=== PATIENT | female | born 1940 | race Caucasian/White ===

== ENCOUNTER 2017-12-13 14:17 | Inpatient (IN) | payer OTHER ==
--- NOTE | 2017-12-13 14:38 | CPEKG ---
Heart Rate: 74 RR Interval: 811 P-R Interval: 212 QRSD Interval: 78 QT Interval: 392 QTC Interval: 435 P Cascade: 81 QRS Cascade: -2 T Wave Cascade: 55 EKG Severity - ABNORMAL ECG - EKG Impression: SINUS RHYTHM EKG Impression: CONSIDER ANTEROSEPTAL INFARCT EKG Impression: The unchanged from previous Electronically Signed By: Martínez Kapadia 13-Dec-2017 14:50:44
--- NOTE | 2017-12-13 14:49 | EDPHY ---
H & P Stated Complaint: Syncope today Time Seen by Provider: 12/13/17 14:33 HPI/ROS: CHIEF COMPLAINT: Syncope HISTORY OF PRESENT ILLNESS: The patient is a 77-year-old female whose brings her to the emergency department for syncopal event this morning. The patient has a history of gradually progressing dementia and has been followed by neurologist in [place]. [place]. They have done an MRI that revealed microvascular and and ischemic disease. Patient has never clinically experienced TIA or CVA symptoms. Today they had an appointment with the neurologist and got up early the patient did her hair and makeup and then went stairs. She leaned against the kitchen counter and then became lightheaded and fainted. Her caught her. She did not suffer any trauma. Her states that she is fallen 4-5 times in the last 2 months and he is now wondering if they were actually syncopal events. The patient denies having any chest pain or shortness of breath associated with the event this morning or with the previous events. She denies palpitations. No recent fevers or illness. She is currently asymptomatic. She did not have any focal weakness or deficits or speech abnormalities. states that she was unconscious for about a minute any later to the ground. She woke up and said "I am fine I was just trying to sit down ". REVIEW OF SYSTEMS: Constitutional: denies: chills, fever, recent illness, recent injury EENTM: denies: blurred vision, double vision, nose congestion Respiratory: denies: cough, shortness of breath Cardiac: See HPI Gastrointestinal/Abdominal: denies: abdominal pain, diarrhea, nausea, vomiting, blood streaked stools Genitourinary: denies: dysuria, frequency, hematuria, pain Musculoskeletal: denies: joint pain, muscle pain Skin: denies: lesions, rash, jaundice, bruising Neurological: denies: headache, numbness, paresthesia, tingling, dizziness, weakness Hematologic/Lymphatic: denies: blood clots, easy bleeding, easy bruising Immunologic/allergic: denies: HIV/AIDS, transplant EXAM: GENERAL: Well-appearing, well-nourished and in no acute distress. HEAD: Atraumatic, normocephalic. EYES: Pupils equal round and reactive to light, extraocular movements intact, sclera anicteric, conjunctiva are normal. ENT: TMs normal, nares patent, oropharynx clear without exudates. Moist mucous membranes. NECK: Normal range of motion, supple without lymphadenopathy or JVD. LUNGS: Breath sounds clear to auscultation bilaterally and equal. No wheezes rales or rhonchi. HEART: Regular rate and rhythm without murmurs, rubs or gallops. ABDOMEN: Soft, nontender, normoactive bowel sounds. No guarding, no rebound. No masses appreciated. BACK: No CVA tenderness, no spinal tenderness, step-offs or deformities EXTREMITIES: Normal range of motion, no pitting or edema. No clubbing or cyanosis. NEUROLOGICAL: Cranial nerves II through XII grossly intact. Normal speech, normal gait. 5/5 strength, normal movement in all extremities, normal sensation PSYCH: Normal mood, normal affect. SKIN: Several old arias to forehead from curling iron Source: Patient Exam Limitations: No limitations - Personal History Current Tetanus/Diphtheria Vaccine: Unsure Current Tetanus Diphtheria and Acellular Pertussis (TDAP): Unsure - Medical/Surgical History Hx Asthma: No Hx Chronic Respiratory Disease: No Hx Diabetes: No Hx Cardiac Disease: No Hx Renal Disease: No Hx Cirrhosis: No Hx Alcoholism: No Hx HIV/AIDS: No Hx Splenectomy or Spleen Trauma: No Other PMH: Dementia, hypertension. Diabetes. Cholesterol high - Family History Significant Family History: No pertinent family hx - Social History Smoking Status: Former smoker Alcohol Use: Sober Drug Use: None Constitutional: Initial Vital Signs Temperature (C) 36.2 C 12/13/17 14:18 Heart Rate 76 12/13/17 14:18 Respiratory Rate 18 12/13/17 14:18 Blood Pressure 138/43 H 12/13/17 14:18 O2 Sat (%) 94 12/13/17 14:18 O2 Delivery Mode Room Air Allergies/Adverse Reactions: bupropion HCl [From Wellbutrin] Allergy (Verified 11/17/15 21:31) INSOMNIA Home Medications: Medication Instructions Recorded Calcium Carbonate [Oyster Shell 500 mg PO BID 12/13/17 Calcium 500 mg (*)] Cholecalciferol Vit D3 [Vitamin D3 1,000 units PO BID 12/13/17 (*)] Donepezil HCl [Aricept] 10 mg PO DAILY 12/13/17 HYDROcodone BIT/HOMATROP ME-BR 0.5 - 1 tsp PO Q4-6PRN PRN 12/13/17 [Hydromet Syrup] Herbals/Supplements -Info Only 1 ea PO DAILY 12/13/17 Lisinopril [Zestril 20 mg (*)] 20 mg PO DAILY 12/13/17 Memantine HCl [Namenda 10 mg] 10 mg PO BID 12/13/17 Multivitamins [Multivitamin (*)] 1 each PO BID 12/13/17 Rosuvastatin Calcium [Crestor 20mg 20 mg PO DAILY 12/13/17 (*)] amLODIPine BESYLATE [Norvasc 5 mg 5 mg PO DAILY 12/13/17 (*)] levOFLOXACIN [levAQUIN (*)] 500 mg PO DAILY@17 12/13/17 metFORMIN HCL [Glucophage 500 mg 500 mg PO BIDMEAL 12/13/17 (*)] Medical Decision Making - Diagnostics EKG Interpretation: An EKG obtained and was read and documented in trace view. Please see trace view for full reading and report. Sinus rhythm, no acute ischemic changes Imaging Results: Imaging Impressions Chest X-Ray 12/13/17 14:46 Impression: Clear lungs. No acute process. Imaging: Discussed imaging studies w/ call center recruiter Radiologist ED Course/Re-evaluation: The patient's initial testing is normal. I will admit for further observation and workup. 3:50 p.m. I discussed the case with Dr. Alberto Funes who will admit for further testing. Differential Diagnosis: Partial list of the Differential diagnosis considered include but were not limited to; syncope, arrhythmia, anemia, dehydration and although unlikely based on the history and physical exam, I also considered CVA, TIA, infection, trauma. - Data Points Laboratory Results: Laboratory Results 12/13/17 14:52 12/13/17 14:52 12/13/17 12/13/17 12/13/17 14:52 14:52 14:52 WBC 5.84 10^3/uL 10^3/uL (3.80-9.50) RBC 3.73 10^6/uL L 10^6/uL (4.18-5.33) Hgb 12.2 g/dL L g/dL (12.6-16.3) Hct 35.5 % L % (38.0-47.0) MCV 95.2 fL fL (81.5-99.8) MCH 32.7 pg pg (27.9-34.1) MCHC 34.4 g/dL g/dL (32.4-36.7) RDW 12.7 % % (11.5-15.2) Plt Count 286 10^3/uL 10^3/uL (150-400) MPV 10.9 fL fL (8.7-11.7) Neut % (Auto) 63.0 % % (39.3-74.2) Lymph % (Auto) 23.8 % % (15.0-45.0) [place] % (Auto) 11.0 % % (4.5-13.0) Eos % (Auto) 1.5 % % (0.6-7.6) Baso % (Auto) 0.5 % % (0.3-1.7) Nucleat RBC Rel Count 0.0 % % (0.0-0.2) Absolute Neuts (auto) 3.68 10^3/uL 10^3/uL (1.70-6.50) Absolute Lymphs (auto) 1.39 10^3/uL 10^3/uL (1.00-3.00) Absolute Monos (auto) 0.64 10^3/uL 10^3/uL (0.30-0.80) Absolute Eos (auto) 0.09 10^3/uL 10^3/uL (0.03-0.40) Absolute Basos (auto) 0.03 10^3/uL 10^3/uL (0.02-0.10) Absolute Nucleated RBC 0.00 10^3/uL 10^3/uL (0-0.01) Immature Gran % 0.2 % % (0.0-1.1) Immature Gran # 0.01 10^3/uL 10^3/uL (0.00-0.10) PT 14.1 SEC SEC (12.0-15.0) INR 1.07 (0.83-1.16) APTT 28.6 SEC SEC (23.0-38.0) Sodium 142 mEq/L mEq/L (135-145) Potassium 4.4 mEq/L mEq/L (3.5-5.2) Chloride 104 mEq/L mEq/L (97-110) Carbon Dioxide 25 mEq/l mEq/l (22-31) Anion Gap 13 mEq/L mEq/L (8-16) BUN 28 mg/dL H mg/dL (7-23) Creatinine 1.2 mg/dL H mg/dL (0.6-1.0) Estimated GFR 43 Glucose 131 mg/dL H mg/dL (70-100) Calcium 9.8 mg/dL mg/dL (8.5-10.4) Troponin I < 0.012 ng/mL ng/mL (0.000-0.034) Departure - Departure Disposition: [facility] Inpatient Acute Clinical Impression: Syncope Qualifiers: Syncope type: unspecified Qualified Code(s): R55 - Syncope and collapse Condition: Fair
[2017-12-13 15:02] LABS: PLATELET COUNT 286 10^3/uL (150-400)
[2017-12-13 15:10] LABS: INR 1.07 (0.83-1.16); PROTIME(PATIENT) 14.1 SEC (12.0-15.0)
[2017-12-13] MEDS ORDERED: ACETAMINOPHEN 325 MG TAB PO PRN (17:19)
[2017-12-13] MEDS ORDERED: D5W 1/2 NS W/ 20 KCl/L 1,000 ML IV SCH (17:30)
--- NOTE | 2017-12-13 17:32 | GHP ---
[f rep st] HISTORY AND PHYSICAL DATE OF ADMISSION: 12/13/2017 CHIEF COMPLAINT: Syncope. HISTORY OF PRESENT ILLNESS: This is a 77-year-old female, with no significant past medical history, who presented to the emergency department today after she passed out this morning. The patient's hus band witnessed this. She was standing in the kitchen when she suddenly slumped over. Her wa s able to catch her and slowly bring her to the ground. Apparently she had lost consciousness for 30 seconds. There was no witnessed seizure activity. The patient denied any preceding chest pain or s hortness of breath. The patient has had multiple recent falls over the past few weeks, one of which she fell forward and broke a tooth. The other falls had not been witnessed. PAST MEDICAL HISTORY: 1. Multiple falls as detailed in the HPI. 2. Borderline diabetes mellitus. 3. Some memory loss. PAST SURGICAL HISTORY: Hysterectomy. HOME MEDICATIONS: Reviewed. Refer to [employer] for details. ALLERGIES: Wellbutrin. SOCIAL HISTORY: She lives with her in [place]. She drinks alcohol occasionally. She is a former smoker. She denies any illicit drug use. FAMILY HISTORY: Reviewed and noncontributory. REVIEW OF SYSTEMS: Comprehensive 10-point review of systems was done and is negative, except for as mentioned in the HPI. The patient has had a cough for the past 4 or 5 days. She was seen by her [facility] provider who started her on antibiotic and decongestant. She continues to cough but denies any fever or chills. PHYSICAL EXAM: VITAL SIGNS: Blood pressure 139/65, pulse of 67, respiratory rate 15. O2 sat 97% on room air. Temperature afebrile. GENERAL: No acute distress. HEAD: Normocephalic, atraumatic. E YES: PERRLA. Sclerae anicteric. MOUTH: Moist mucous membranes. NECK: Supple. No lymphadenopath y. CARDIOVASCULAR: S1, S2. No murmurs, rubs, clicks, gallops. No JVD. No lower extremity edema. PULMONARY: Lungs are clear. No wheezes, rales, or rhonchi. ABDOMEN: Soft, nontender, nondistende d. No guarding or rebound tenderness. Normoactive bowel sounds. EXTREMITIES: No clubbing or cyano sis. NEURO: Cranial nerves 2-12 grossly intact. No focal motor or sensory deficits. SKIN: Clear. No rashes. DIAGNOSTICS: Chest x-ray, which I visualized and personally interpreted, was negative for pneumonia. EKG which I visualized and personally interpreted, sinus rhythm, rate 74 beats per minute. There are Q waves in V1 and V2. No other acute ischemic changes. WBC is 5.8, hemoglobin 12.2, hematocrit 35.5, platelets 286. Coags unremarkable. Sodium 142, potassium 4.4, chloride 104, BUN 28, creatinine 1.2, glucose 131. ASSESSMENT AND PLAN: This is a 77-year-old female, presented to the ER status post: 1. Syncope, concerning for cardiogenic syncope given her history of recent falls and drop attacks. 2. Prerenal azotemia, possible dehydration. 3. Anterior Q waves on EKG without reported history of coronary artery disease. 4. Mild normocytic anemia. PLAN: 1. Place on observation. 2. Monitor on telemetry. 3. Iron studies. 4. IV hydration. 5. Echocardiogram to evaluate for wall motion abnormalities, given her Q waves on EKG. 6. Will ask my colleagues to consult Cardiology in the morning. 7. The patient requests to be full code status. /[id number]/MODL
[2017-12-13] MEDS: metFORMIN HCL 500 MG TAB PO SCH (18:29)
[2017-12-13] MEDS: MULTIVITAMINS 1 EACH TAB PO SCH (20:26)
[2017-12-13] MEDS: MEMANTINE HCL 5 MG TAB PO SCH (20:26)
[2017-12-13] MEDS ORDERED: NON-FORMULARY NEW DRUG (Memantine Hcl [Namenda 10 Mg] 10 MG) PO SCH (21:00)
[2017-12-14 03:50] LABS: PLATELET COUNT 286 10^3/uL (150-400)
[2017-12-14] MEDS: LISINOPRIL 20 MG TAB PO SCH (08:49)
[2017-12-14] MEDS: metFORMIN HCL 500 MG TAB PO SCH ×2 (08:49→18:19)
[2017-12-14] MEDS: ROSUVASTATIN CALCIUM 20 MG TAB PO SCH (08:50)
[2017-12-14] MEDS: MEMANTINE HCL 5 MG TAB PO SCH ×2 (08:51→20:39)
[2017-12-14] MEDS: DONEPEZIL HCL 5 MG TAB PO SCH (08:51)
[2017-12-14] MEDS: MULTIVITAMINS 1 EACH TAB PO SCH ×2 (08:51→20:39)
[2017-12-14] MEDS ORDERED: NON-FORMULARY NEW DRUG (Donepezil Hcl [Aricept] 10 MG) PO SCH (09:00)
--- NOTE | 2017-12-14 09:20 | ECHO ---
[email or web address] [address] [address] Main: [phone] Fax: Transthoracic Echocardiogram Name: DOTTIE MAHAJAN MR#: [id number] Study Date: 12/14/2017 Study Time: 07:47 AM Date of : 1940 Age: 77 year(s) Height: 175.3 cm (69 in.) Weight: 65.77 kg (145 lb.) BSA: 1.8 m2 Gender: Female Examination: Echo Indication: Anterior Q waves presents with syncope Image Quality: Contrast: Requested by: Alberto Funes BP: 113 mmHg/56 mmHg Heart Rate: Rhythm: Indication: Anterior Q waves presents with syncope Procedure Staff Reverse Unit Operator: Mireille Yoon [facility] Reading Physician: Gabe Powers Requesting Provider: Conclusions: Normal global systolic LV function. The ejection fraction is estimated to be 60-65 %. No regional wall motion abnormality. Mild to moderate mitral regurgitation. The aortic valve is normal in appearance and function. The tricuspid valve is normal in appearance and function. There is no previous echocardiogram for comparison. Measurements: Chambers Valvular Assessment AV/MV Valvular Assessment TV/PV Normal Normal Normal Name Value Range Name Value Range Name Value Range Ao Emi (MM): 3.2 cm (2.2 cm-3.7 AV Vmax: 1.05 m/s (1 m/s-1.7 cm) m/s) IVSd (2D): 0.7 cm (0.6 cm-1.1 AV maxP mmHg ( - ) cm) MV E Vmax: 1.04 m/s ( - ) LVDd (2D): 4.1 cm (3.9 cm-5.3 MV A Vmax: 1.15 m/s ( - ) cm) MV E/A: 0.90 ( - ) LVDs (2D): 2.8 cm (2.1 cm-4 cm) LVPWd (2D): 0.7 cm ( - ) LVEF (MOD4): 66 % (>=55 %) EF Range: 60-65 % Continued Measurements: Chambers Valvular Assessment AV/MV Name Value Name Value LADs: 3.3 cm MV E/E' Septal: 16.20 LADs Lon.0 cm Patient: DOTTIE MAHAJAN Study Date: 12/14/2017 Page 1 of 2 07:47 AM LA Area: 17.9 cm2 MV E/E' Lateral: 19.80 Findings: Left Ventricle: Normal size left ventricle. No LV hypertrophy. Normal global systolic LV function. The ejection fraction is estimated to be 60-65 %. No regional wall motion abnormality. Right Ventricle: Normal size right ventricle. Left Atrium: The left atrium is normal in size. Right Atrium: The right atrium is normal in size. Mitral Valve: Mild mitral annular calcification. Mild to moderate mitral regurgitation. Aortic Valve: The aortic valve is normal in appearance and function. Tricuspid Valve: The tricuspid valve is normal in appearance and function. Pulmonic Valve: The pulmonic valve is normal in appearance and function. Aorta: The aorta is normal. Pericardium: No pericardial effusion. (No Signature Object) Patient: DOTTIE MAHAJAN Study Date: 12/14/2017 Page 2 of 2 07:47 AM [id number]
--- NOTE | 2017-12-14 10:14 | GHP ---
[f rep st] HISTORY AND PHYSICAL DATE OF ADMISSION: 12/13/2017 INDICATION: Syncope. HISTORY OF PRESENT ILLNESS: A 77-year-old female who was admitted yesterday after an episode of ligh theadedness and near syncope. She was witnessed by her , who I actually caught her. She retu rned back to normal within less than 30 seconds. She was brought to the [facility] emergency room for furth er evaluation. Past medical history significant for history of hypercholesterolemia for which she carranza s been on longstanding statins without problems. She has a history of hypertension, on chronic stabl e meds. She apparently has been having issues with forgetfulness and early dementia, has seen a neur ologist in [place]. Apparently an MRI showed possible multi-infarcts. In speaking to her , edmundo polk has been no history of coronary artery disease. She has had, over the last year, so some "falls. " Some are clearly slip and falls with catching her toe on a sidewalk, some could actually have been arrhythmia causes. She has no definite history of prior diagnosis of any arrhythmias. Her EKG show s normal sinus rhythm. Her troponins are normal. She denies any ACS symptomatology or CHF. An echo cardiogram today was essentially normal except for changes consistent with her age. She did have a U RI the last few days, was seen by her primary care physician, on antibiotics, but did not have any co ughing or fever or shaking chills prior to this. No history of seizures. She is resting comfortably in her bed at this time. PAST HISTORY: 1. Hyperlipidemia. 2. Hypertension. 3. Memory loss suspicious for early dementia versus multi-infarct dementia. Followed by Neurology. PAST SURGICAL HISTORY: Hysterectomy. MEDICATIONS: See reconciliation form. She is on Crestor and an JESSICA inhibitor for cardiac reasons. ALLERGIES: To Wellbutrin. SOCIAL HISTORY: She lives with her . She denies any alcohol abuse. She has never been a smo ker. REVIEW OF SYSTEMS: Ten-point is negative except for the above issues mentioned in her HPI. PHYSICAL EXAMINATION: VITAL SIGNS: Blood pressure is 130/60, heart rate in the 60s in sinus with oc casional PVCs or PACs. GENERAL: She is an elderly female who is alert and oriented x3, with no acut e distress at this time. HEENT: Showed moist oropharynx. NECK: Supple. No carotid bruits. LUNGS : Clear to auscultation. CARDIOVASCULAR: Regular rate and rhythm with a soft systolic murmur. No JVP. ABDOMEN: Soft, nontender. MUSCULOSKELETAL: Without cyanosis, clubbing, or edema. LABS: Sodium 142, potassium 4.5. BUN 28, creatinine 1.1. Troponin was less than 0.12. EKG shows n ormal sinus rhythm without ischemia, arrhythmias, or interval abnormalities. ASSESSMENT: 1. Syncope. Patient probably is multifactorial. There were some clear slip and falls, however, the episode yesterday appeared to be accompanied by palpitations prior. This also suggests an arrhythmi a coupled with her MRI that, by their report, shows possible multi-infarct dementia, could suggest em bolic issues. At this point, will continue monitoring her. If she has no clear-cut issues while in the hospital, she clearly needs a 30-day monitor as an outpatient. There is nothing to suggest ACS a t this time. If she rules out for myocardial infarction, I would probably do an exercise stress test as an outpatient. 2. Hyperlipidemia, well controlled on current Crestor. 3. Hypertension, apparently well controlled on her JESSICA inhibitor. PLAN: Further care depending on her clinical course. /[id number]/MODL
--- NOTE | 2017-12-14 15:51 | HOSPPROG ---
Hospitalist Progress Note Assessment/Plan: * syncope * Concerning for arrhythmia * Monitoring overnight on tele * hypertension * URI * Discontinue Levaquin Subjective: No new complaints. Feeling well Objective: Vital Signs Temp Pulse Resp BP Pulse Ox 36.9 C 71 16 105/47 L 93 12/14/17 15:37 12/14/17 15:37 12/14/17 15:37 12/14/17 15:37 12/14/17 15:37 Laboratory Results 12/14/17 03:36 12/14/17 03:36 12/13/17 12/14/17 12/15/17 05:59 05:59 05:59 Intake Total 1350 480 Balance 1350 480 PT 14.1 SEC (12.0-15.0) 12/13/17 14:52 INR 1.07 (0.83-1.16) 12/13/17 14:52 - Physical Exam Constitutional: no apparent distress, appears nourished, not in pain Eyes: anicteric sclera, EOMI Ears, Nose, Mouth, Throat: moist mucous membranes, hearing normal Cardiovascular: regular rate and rhythym, no murmur, rub, or gallop Respiratory: no respiratory distress, no rales or rhonchi, clear to auscultation Gastrointestinal: normoactive bowel sounds, soft, non-tender abdomen, no palpable masses Skin: warm Neurologic: AAOx3 Psychiatric: interacting appropriately, not anxious, not encephalopathic, thought process linear ICD10 Worksheet Patient Problems: Problems Problem Status Onset Syncope Acute High blood pressure Acute Visual disturbance Acute
--- NOTE | 2017-12-14 16:10 | ASMTCMCOM ---
CM Note CM Note Notes: Spoke with pt, RN & MD; anticipate dc home with support of spouse when medically stable. CM available if needs/changes. Date Signed: 12/14/2017 04:09 PM Electronically Signed By:Trice John RN
--- NOTE | 2017-12-14 16:32 | PDMN ---
Medical Necessity Medical necessity: C/M review: Patient meets INPT criteria under [facility] M-340 Syncope: Acute syncope concerning for cardiac arrhythmia, upper respiratory infection requiring ongoing cardiac monitoring, IV fluids, comorbid hypertension , hyperlipidemia, memory loss suspicious for early dementia versus multi- infarct dementia. MD anticipates > 2 MN LOS for ongoing med nec for eval and TX of above. Patient is Medicare Advantage which follows guidelines CMS puts forth.
[2017-12-15 07:23] VITALS: BP 137/70; PULSE 61; RESP 16; TEMP 98; O2SAT 96
--- NOTE | 2017-12-15 08:52 | SOAPPROG ---
SOAP Progress Note Assessment/Plan: Assessment:1. near syncope..unclear etiology..no mi or cm. unremarkable moniter last night...rec 30 day moniter as out pt. have pt call our office tomorrow to get arranged ..i gave her my card....will also get out pt tm 2. hyperlipidemia..well controlled on crestor 3. htn..well controlled Plan:1. ok to d/c home with f/u with me in 1 month or as needed 12/15/17 08:49 12/15/17 08:52 Subjective: no c/o ..seen with hsuband...pac/pvc's only on moniter last night.. Objective: Vital Signs Temp Pulse Resp BP Pulse Ox 36.7 C 61 16 137/70 H 96 12/15/17 07:22 12/15/17 07:22 12/15/17 07:22 12/15/17 07:22 12/15/17 07:22 12/14/17 12/15/17 12/16/17 05:59 05:59 05:59 Intake Total 1200 Output Total 3 Balance 1197 PT 14.1 SEC (12.0-15.0) 12/13/17 14:52 INR 1.07 (0.83-1.16) 12/13/17 14:52 Physical Exam - Physical Exam Respiratory: lungs clear Cardiac/Chest: regular rate, rhythm, No edema, No JVD ICD10 Worksheet Patient Problems: Problems Problem Status Onset Syncope Acute High blood pressure Acute Visual disturbance Acute
[2017-12-15] MEDS: ROSUVASTATIN CALCIUM 20 MG TAB PO SCH (09:00)
[2017-12-15] MEDS: metFORMIN HCL 500 MG TAB PO SCH (09:00)
[2017-12-15] MEDS: MULTIVITAMINS 1 EACH TAB PO SCH (09:00)
[2017-12-15] MEDS: LISINOPRIL 20 MG TAB PO SCH (09:00)
[2017-12-15] MEDS: DONEPEZIL HCL 5 MG TAB PO SCH (09:00)
[2017-12-15] MEDS: MEMANTINE HCL 5 MG TAB PO SCH (09:00)
--- NOTE | 2017-12-15 12:02 | GDS ---
[f rep st] DISCHARGE SUMMARY DISCHARGE DIAGNOSES: 1. Syncope of unclear etiology. 2. Early diabetes. 3. Hypertension. 4. Hyperlipidemia. HISTORY: 77-year-old female who presented with syncopal episode. HOSPITAL COURSE: The patient was admitted and monitored on tele. No arrhythmias were noted. Echoca rdiogram was done. She did not show any significant abnormalities. She is going to be discharged ho me with a point to get a Holter monitor tomorrow. /[id number]/MODL
--- NOTE | 2017-12-15 14:42 | ASDISCHSUM ---
Discharge Information Plan Status:Home with No Needs Medically Cleared to Leave:12/14/2017 Discharge Date:12/15/2017 10:48 AM CM D/C Disposition:Home, Routine, Self-Care ADT D/C Disposition:Home, Routine, Self-Care Projected Discharge Date:12/15/2017 12:00 AM Transportation at D/C:Family Discharge Delay Reason: Follow-Up Date:12/15/2017 12:00 AM Discharge Slot: Final Diagnosis:Syncope, pre DM, HTN, HLD Placement Information Patient Contact Information Contact Name:JOE Relationship: Address:[address] Work Phone: [facility] Phone: [facility]/Zip Code:[place] [address] Email: Financial Information Financial Class:Medicare Advantage Plans Primary Plan Desc:[facility] [employer] PLANS Primary Plan Number:[id number] Secondary Plan Desc: Secondary Plan Number: Assessment Information [facility] CM Progress Note CM Note CM Note Notes: Spoke with pt, RN & MD; anticipate dc home with support of spouse when medically stable. CM available if needs/changes. Date Signed: 12/14/2017 04:09 PM Electronically Signed By:Trice John RN Case Management Discharge Plan Note Case Management Discharge Discharge Order Complete? Answers: Yes Patient to Obtain Answers: via Family Medications Transportation Arranged Answers: Family/Friends Transport will Pick (Date 12/15/2017 12:00 AM & Time) Family Notified Answers: Yes Notes: Family to transport Discharge Comments Notes: Patient was admitted and monitored. No abnormalities. To discharge today and get a Holter monitor on Saturday. Date Signed: 12/15/2017 02:41 PM Electronically Signed By:EDUIN SparksW Intervention Information
== END 2017-12-15 10:48 | disposition home or self-care (01) | DRG 312 ==
LOC: F2W 16:50 → OBSVTOIN 12-14 16:19
PROVIDERS: ADMIT Family Medicine; ATTEND Family Medicine
DX: R55 Syncope and collapse (principal); I10 Essential (primary) hypertension; E78.5 Hyperlipidemia, unspecified; E11.9 Type 2 diabetes mellitus without complications; F03.90 Unspecified dementia, unspecified severity, without behavioral disturbance, psychotic disturbance, mood disturbance, and anxiety; Z87.891 Personal history of nicotine dependence
CPT/HCPCS: G0378

== ENCOUNTER 2018-07-04 18:03 | Emergency (ER) | payer OTHER ==
[2018-07-04] MEDS ORDERED: NS 500 ML IV ONE (18:49)
--- NOTE | 2018-07-04 18:51 | EDPHY ---
H & P Stated Complaint: h/a, sinus pain, body aches, fatigue - Medical/Surgical History Hx Asthma: No Hx Chronic Respiratory Disease: No Hx Diabetes: No Hx Cardiac Disease: No Hx Renal Disease: No Hx Cirrhosis: No Hx Alcoholism: No Hx HIV/AIDS: No Hx Splenectomy or Spleen Trauma: No Other PMH: Dementia, hypertension. hyperlipidemia - Social History Smoking Status: Former smoker Time Seen by Provider: 07/04/18 18:36 HPI/ROS: CHIEF COMPLAINT: Not feeling well x2 days HISTORY OF PRESENT ILLNESS: 77-year-old female arrives via private vehicle with complaining of 2 days of nausea clap frontal headache, diffuse myalgias,. Patient has been complaining of ongoing sinus like symptoms for several weeks, saw her primary care provider 4 days ago prescribed Bactrim which he has been on for 2 days. She denies focal areas of discomfort beyond headache. She is mentating at her baseline per . She denies neurologic deficits. Denies: Nausea, vomiting, urinary abnormality, flank pain, suprapubic discomfort, GI complaints. PRIMARY CARE PROVIDER: Naseem Vaughan REVIEW OF SYSTEMS: A ten point review of systems was performed and is negative with the exception of the items mentioned in the HPI PAST MEDICAL & SURGICAL HISTORY: Dementia. Hypertension. Hyperlipidemia. SOCIAL HISTORY: nonsmoker PHYSICAL EXAM (Prior to examination, patient consented to physical exam, hands were washed and my usual and customary physical exam procedures followed) 1) GENERAL: Well-developed, well-nourished, alert and oriented. Appears to be in no acute distress. 2) HEAD: Normocephalic, atraumatic 3) HEENT: Pupils equal, round, reactive to light bilaterally. Sclera anicteric. Nasopharynx, oropharynx, clear, no lesions. Moist Mucous membranes. No tonsillar enlargement or exudate. Ears bilaterally with normal tympanic membranes. 4) NECK: Full range of motion, no meningeal signs. No adenopathy. 5) LUNGS: Clear auscultation bilaterally, no wheezes, no rhonchi, no retractions. 6) HEART: Regular rate and rhythm, no murmur, no heave, no gallop. 7) ABDOMEN: No guarding, no rebound, no focal tenderness, negative McBurney's, negative Sykes's, negative Rovsing's, negative peritoneal sign, 8) MUSCULOSKELETAL: Moving all extremities, no focal areas of tenderness, no obvious trauma. No peripheral edema or discoloration. 9) BACK: No CVA tenderness, no midline vertebral tenderness, no fluctuance, no step-off, no obvious trauma, no visual or palpable abnormality. 10) SKIN: No rash, no petechiae. 11) Psychiatric: Patient is oriented X 3, there is no agitation. 12) NEURO: Awake, alert, and oriented to person, place and time. Answers questions appropriately. There were no obvious focal neurologic abnormalities. No cerebellar dysfunction. Cranial nerves 2 through to 12 intact. Normal steady gait. Upper and lower extremities bilaterally with strength 5 / 5, reflexes 2+. DIFFERENTIAL DIAGNOSIS: In no particular include but limited to pyelonephritis , urosepsis, intracranial hemorrhage, CVA (Heather,Nigel [place]) Constitutional: Initial Vital Signs Temperature (C) 37.0 C 07/04/18 18:10 Heart Rate 68 07/04/18 18:10 Respiratory Rate 16 07/04/18 18:10 Blood Pressure 151/60 H 07/04/18 18:10 O2 Sat (%) 98 07/04/18 18:10 O2 Delivery Mode Room Air Allergies/Adverse Reactions: bupropion HCl [From Wellbutrin] Allergy (Verified 11/17/15 21:31) INSOMNIA Home Medications: Medication Instructions Recorded Calcium Carbonate [Oyster Shell 500 mg PO BID 12/13/17 Calcium 500 mg (*)] Cholecalciferol Vit D3 [Vitamin D3 1,000 units PO BID 12/13/17 (*)] Donepezil HCl [Aricept] 10 mg PO DAILY 12/13/17 HYDROcodone BIT/HOMATROP ME-BR 0.5 - 1 tsp PO Q4-6PRN PRN 12/13/17 [Hydromet Syrup] Herbals/Supplements -Info Only 1 ea PO DAILY 12/13/17 Lisinopril [Zestril 20 mg (*)] 20 mg PO DAILY 12/13/17 Memantine HCl [Namenda 10 mg] 10 mg PO BID 12/13/17 Multivitamins [Multivitamin (*)] 1 each PO BID 12/13/17 Rosuvastatin Calcium [Crestor 20mg 20 mg PO DAILY 12/13/17 (*)] amLODIPine BESYLATE [Norvasc 5 mg 5 mg PO DAILY 12/13/17 (*)] metFORMIN HCL [Glucophage 500 mg 500 mg PO BIDMEAL 12/13/17 (*)] Cephalexin [Keflex] 500 mg PO TID 7 Days cap 07/04/18 Medical Decision Making - Diagnostics Imaging Results: Imaging Impressions Chest X-Ray 07/04/18 18:49 Impression: No acute findings in the chest. Head CT 07/04/18 18:51 Impression: 1. No acute intracranial findings. 2. Diffuse cerebral atrophy with periventricular and subcortical low attenuation consistent with chronic microvascular ischemic gliosis. Findings discussed with Nigel Romero 07/04/2018 at 19:48. Imaging Impressions Chest X-Ray 07/04/18 18:49 Impression: No acute findings in the chest. Head CT 07/04/18 18:51 Impression: 1. No acute intracranial findings. 2. Diffuse cerebral atrophy with periventricular and subcortical low attenuation consistent with chronic microvascular ischemic gliosis. Findings discussed with Nigel Romero 07/04/2018 at 19:48. Images reviewed myself (Nigel Romero) ED Course/Re-evaluation: 6:53 p.m.: Patient the ER complaining of multiple semi nebulous complaints. Given the patient's age, history of dementia, recommended diagnostic testing to include CT imaging head given her ongoing frontal sinus pressure, point care troponin, EKG, laboratory studies urinalysis. Explained to patient they are agreeable with this. I saw this patient independently based on established practice protocols. Care of patient under supervision of secondary supervising physician Dr Epstein . 830: Re-evaluation. Discussed the case with Dr. Radha Epstein. Discussed the patient's elevated creatinine of 1.3. Recent values between 1.2 and 1.1. I do not think that this and myself requires hospitalization or further emergent management. She is noted to have pyuria and bacteriuria. She has been on Bactrim DS for 2 days for sinus infection. I recommended transition to Keflex. Today is Saturday. I recommend follow up with her primary care provider on Saturday. Doubt cardiac etiology. and patient feel comfortable being discharged home. (Nigel Romero) - Data Points Laboratory Results: Laboratory Results 07/04/18 18:50 07/04/18 18:50 07/04/18 07/04/18 07/04/18 19:11 18:50 18:50 WBC 4.07 10^3/uL 10^3/uL (3.80-9.50) RBC 4.09 10^6/uL L 10^6/uL (4.18-5.33) Hgb 13.2 g/dL g/dL (12.6-16.3) Hct 38.9 % % (38.0-47.0) MCV 95.1 fL fL (81.5-99.8) MCH 32.3 pg pg (27.9-34.1) MCHC 33.9 g/dL g/dL (32.4-36.7) RDW 14.4 % % (11.5-15.2) Plt Count 213 10^3/uL 10^3/uL (150-400) MPV 11.8 fL H fL (8.7-11.7) Neut % (Auto) 69.4 % % (39.3-74.2) Lymph % (Auto) 13.0 % L % (15.0-45.0) Nobles % (Auto) 10.8 % % (4.5-13.0) Eos % (Auto) 5.9 % % (0.6-7.6) Baso % (Auto) 0.7 % % (0.3-1.7) Nucleat RBC Rel Count 0.0 % % (0.0-0.2) Absolute Neuts (auto) 2.82 10^3/uL 10^3/uL (1.70-6.50) Absolute Lymphs (auto) 0.53 10^3/uL L 10^3/uL (1.00-3.00) Absolute Monos (auto) 0.44 10^3/uL 10^3/uL (0.30-0.80) Absolute Eos (auto) 0.24 10^3/uL 10^3/uL (0.03-0.40) Absolute Basos (auto) 0.03 10^3/uL 10^3/uL (0.02-0.10) Absolute Nucleated RBC 0.00 10^3/uL 10^3/uL (0-0.01) Immature Gran % 0.2 % % (0.0-1.1) Immature Gran # 0.01 10^3/uL 10^3/uL (0.00-0.10) RBC/WBC/PLT Morphology TNP Platelet Estimate TNP Sodium 140 mEq/L mEq/L (135-145) Potassium 4.0 mEq/L mEq/L (3.3-5.0) Chloride 102 mEq/L mEq/L (97-110) Carbon Dioxide 27 mEq/l mEq/l (22-31) Anion Gap 11 mEq/L mEq/L (8-16) BUN 24 mg/dL H mg/dL (7-23) Creatinine 1.3 mg/dL H mg/dL (0.6-1.0) Estimated GFR 40 Glucose 87 mg/dL mg/dL (70-100) Calcium 9.4 mg/dL mg/dL (8.5-10.4) POC Troponin I 0.00 ng/mL ng/mL (0.00-0.08) Urine Color Urine Appearance Urine pH Ur Specific [place] Urine Protein Urine Ketones Urine Blood Urine Nitrate Urine Bilirubin Urine Urobilinogen Ur Leukocyte Esterase Urine RBC Urine WBC Ur Epithelial Cells Urine Mucus Urine Glucose 07/04/18 18:45 WBC RBC Hgb Hct MCV MCH MCHC RDW Plt Count MPV Neut % (Auto) Lymph % (Auto) Nobles % (Auto) Eos % (Auto) Baso % (Auto) Nucleat RBC Rel Count Absolute Neuts (auto) Absolute Lymphs (auto) Absolute Monos (auto) Absolute Eos (auto) Absolute Basos (auto) Absolute Nucleated RBC Immature Gran % Immature Gran # RBC/WBC/PLT Morphology Platelet Estimate Sodium Potassium Chloride Carbon Dioxide Anion Gap BUN Creatinine Estimated GFR Glucose Calcium POC Troponin I Urine Color PARI Urine Appearance CLEAR Urine pH 5.0 (5.0-7.5) Ur Specific [place] 1.026 (1.002-1.030) Urine Protein NEGATIVE (NEGATIVE) Urine Ketones NEGATIVE (NEGATIVE) Urine Blood NEGATIVE (NEGATIVE) Urine Nitrate NEGATIVE (NEGATIVE) Urine Bilirubin NEGATIVE (NEGATIVE) Urine Urobilinogen NEGATIVE EU EU (0.2-1.0) Ur Leukocyte Esterase 3+ H (NEGATIVE) Urine RBC 3-5 /hpf H /hpf (0-3) Urine WBC 15-25 /hpf H /hpf (0-3) Ur Epithelial Cells TRACE /lpf /lpf (NONE-1+) Urine Mucus 1+ /lpf /lpf (NONE-1+) Urine Glucose NEGATIVE (NEGATIVE) Point of Care Test Results: Chemistry 07/04/18 19:11 POC Troponin I 0.00 ng/mL ng/mL (0.00-0.08) Departure - Departure Disposition: Home, Routine, Self-Care Clinical Impression: Urinary tract infection Qualifiers: Urinary tract infection type: acute cystitis Hematuria presence: without hematuria Qualified Code(s): N30.00 - Acute cystitis without hematuria Condition: Good Instructions: Cephalexin (By mouth), Urinary Tract Infection in Men (ED) Additional Instructions: Return to the ER immediately if you experience fevers/chills, flu like symptoms , inability to tolerate oral intake, nausea or vomiting, or any other symptoms that concern you. Referrals: NANI SALVADOR [Primary Care Provider] - 07/07/18 Prescriptions: Cephalexin [Keflex] 500 mg PO TID 7 Days cap
[2018-07-04 19:12] LABS: PLATELET COUNT 213 10^3/uL (150-400)
[2018-07-04] MEDS: CEPHALEXIN 500 MG CAP PO ONE ×2 (21:11→21:47)
[2018-07-04] MEDS ORDERED: CEPHALEXIN 500 MG CAP PO ONE (21:25)
[2018-07-04 21:44] VITALS: BP 152/70
--- NOTE | 2018-07-06 07:09 | CPEKG ---
Test Reason : OPEN Blood Pressure : / mmHG Vent. Rate : 066 BPM Atrial Rate : 066 BPM P-R Int : 207 ms QRS Dur : 082 ms QT Int : 429 ms P-R-T Axes : 082 015 057 degrees QTc Int : 450 ms Sinus rhythm Ventricular trigeminy Low voltage, extremity leads Confirmed by Danial Deras ([id number]) on 07/06/2018 7:08:54 AM Referred By: Confirmed By:Danial Deras
== END 2018-07-04 21:43 | disposition home or self-care (01) ==
DX: N30.00 Acute cystitis without hematuria (principal); E86.9 Volume depletion, unspecified; I10 Essential (primary) hypertension; E78.5 Hyperlipidemia, unspecified; Z87.891 Personal history of nicotine dependence
CPT/HCPCS: 84484-PO

== ENCOUNTER 2019-02-17 10:57 | Emergency (ER) | payer OTHER ==
[2019-02-17] MEDS ORDERED: AMOXICILLIN/CLAVULANATE POT 875/125 MG TAB PO ONE (11:31)
--- NOTE | 2019-02-17 11:34 | EDPHY ---
H & P Stated Complaint: cat bite Time Seen by Provider: 02/17/19 11:22 HPI/ROS: CHIEF COMPLAINT: Cat bite HISTORY OF PRESENT ILLNESS: The patient is a 78-year-old female who comes to the emergency department her complaining of cap bite to the dorsum of her left hand about 4 days ago. They have been using Neosporin ointment at home but it has become slightly erythematous and warm to the touch. They are concerned for infection. She is currently taking Macrobid for urinary tract infection. She just finished an different unknown antibiotic last week for a urine infection as well. She is not having fevers. There not concerned for foreign body. Normal movement in her fingers and wrist. Severity: Moderate Modifying factors: None REVIEW OF SYSTEMS: Constitutional: denies: chills, fever, recent illness, recent injury EENTM: denies: blurred vision, double vision, nose congestion Respiratory: denies: cough, shortness of breath Cardiac: denies: chest pain, irregular heart rate, lightheadedness, palpitations Gastrointestinal/Abdominal: denies: abdominal pain, diarrhea, nausea, vomiting, blood streaked stools Genitourinary: denies: dysuria, frequency, hematuria, pain Musculoskeletal: denies: joint pain, muscle pain Skin: See HPI Neurological: denies: headache, numbness, paresthesia, tingling, dizziness, weakness Hematologic/Lymphatic: denies: blood clots, easy bleeding, easy bruising Immunologic/allergic: denies: HIV/AIDS, transplant 10 systems reviewed and negative except as noted EXAM: GENERAL: Well-appearing, well-nourished and in no acute distress. HEAD: Atraumatic, normocephalic. EYES: Pupils equal round and reactive to light, extraocular movements intact, sclera anicteric, conjunctiva are normal. ENT: TMs normal, nares patent, oropharynx clear without exudates. Moist mucous membranes. NECK: Normal range of motion, supple without lymphadenopathy or JVD. LUNGS: Breath sounds clear to auscultation bilaterally and equal. No wheezes rales or rhonchi. HEART: Regular rate and rhythm without murmurs, rubs or gallops. ABDOMEN: Soft, nontender, normoactive bowel sounds. No guarding, no rebound. No masses appreciated. BACK: No CVA tenderness, no spinal tenderness, step-offs or deformities EXTREMITIES: Normal range of motion, no pitting or edema. No clubbing or cyanosis. NEUROLOGICAL: Cranial nerves II through XII grossly intact. Normal speech, normal gait. 5/5 strength, normal movement in all extremities, normal sensation , normal reflexes PSYCH: Normal mood, normal affect. SKIN: Mild erythema to dorsum of left hand. No palpable lumbar foreign body. No discharge. Source: Patient Exam Limitations: No limitations - Personal History Current Tetanus/Diphtheria Vaccine: No Current Tetanus Diphtheria and Acellular Pertussis (TDAP): No - Medical/Surgical History Hx Asthma: No Hx Chronic Respiratory Disease: No Hx Diabetes: No Hx Cardiac Disease: No Hx Renal Disease: No Hx Cirrhosis: No Hx Alcoholism: No Hx HIV/AIDS: No Hx Splenectomy or Spleen Trauma: No Other PMH: Dementia, hypertension. hyperlipidemia - Family History Significant Family History: No pertinent family hx - Social History Smoking Status: Former smoker Alcohol Use: None Constitutional: Initial Vital Signs Temperature (C) 36.8 C 02/17/19 11:15 Heart Rate 69 02/17/19 11:15 Respiratory Rate 18 02/17/19 11:15 Blood Pressure 134/55 H 02/17/19 11:15 O2 Sat (%) 96 02/17/19 11:15 O2 Delivery Mode Room Air Allergies/Adverse Reactions: bupropion HCl [From Wellbutrin] Allergy (Verified 02/17/19 11:16) INSOMNIA Home Medications: Medication Instructions Recorded Calcium Carbonate [Oyster Shell 500 mg PO BID 12/13/17 Calcium 500 mg (*)] Cholecalciferol Vit D3 [Vitamin D3 1,000 units PO BID 12/13/17 (*)] Donepezil HCl [Aricept] 10 mg PO DAILY 12/13/17 HYDROcodone BIT/HOMATROP ME-BR 0.5 - 1 tsp PO Q4-6PRN PRN 12/13/17 [Hydromet Syrup] Herbals/Supplements -Info Only 1 ea PO DAILY 12/13/17 Lisinopril [Zestril 20 mg (*)] 20 mg PO DAILY 12/13/17 Memantine HCl [Namenda 10 mg] 10 mg PO BID 12/13/17 Multivitamins [Multivitamin (*)] 1 each PO BID 12/13/17 Rosuvastatin Calcium [Crestor 20mg 20 mg PO DAILY 12/13/17 (*)] amLODIPine BESYLATE [Norvasc 5 mg 5 mg PO DAILY 12/13/17 (*)] metFORMIN HCL [Glucophage 500 mg 500 mg PO BIDMEAL 12/13/17 (*)] Cephalexin [Keflex] 500 mg PO TID 7 Days cap 07/04/18 CEPHALEXIN 07/07/18 Fluticasone Nasal [Flonase Nasal 2 sprays NASAL DAILY #1 mdi 07/07/18 [place] (RX)] Fluticasone Nasal [Flonase Nasal 2 sprays NASAL DAILY #1 mdi 07/07/18 [place] (RX)] Amoxicillin/Clavulanate Pot 875 mg PO BID #14 tab 02/17/19 [Augmentin 875Mg] Medical Decision Making ED Course/Re-evaluation: Patient does have mild cellulitic changes to the dorsum of her hand. No suspected foreign body. Will start on Augmentin. Discussed other possible combinations of antibiotics however most regimens require to different antibiotics so she will continue to take her Macrobid and will add Augmentin. I will give her dose here in the department. We discussed potential side effects and indications for returning. Differential Diagnosis: Partial list of the Differential diagnosis considered include but were not limited to; cat bite, foreign body and although unlikely based on the history and physical exam, I also considered tendinitis, fracture. I discussed these differential diagnoses and the plan with the patient as well as the usual and expected course. The patient understands that the diagnosis is provisional and that in medicine we are not always correct and that further workup is often warranted. Usual and customary warnings were given. All of the patient's questions were answered. The patient was instructed to return to the emergency department should the symptoms at all worsen or return, otherwise to followup with the physician as we discussed. - Data Points Medications Given: Discontinued Medications Amoxicillin/Clavulanate Potassium (Augmentin 875mg) 875 mg PO EDNOW ONE PRN Reason: Protocol Stop: 02/17/19 11:32 Last Admin: 02/17/19 11:40 Dose: 875 mg Departure - Departure Disposition: Home, Routine, Self-Care Clinical Impression: Cat bite of left hand Qualifiers: Encounter type: initial encounter Qualified Code(s): S61.452A - Open bite of left hand, initial encounter; W55.01XA - Bitten by cat, initial encounter; W55.01XA - Bitten by cat, initial encounter Condition: Fair Instructions: Animal Bite (ED) Referrals: NANI SALVADOR [Primary Care Provider] - As per Instructions Prescriptions: Amoxicillin/Clavulanate Pot [Augmentin 875Mg] 875 mg PO BID #14 tab
[2019-02-17] MEDS ORDERED: BACITRACIN OINTMENT 1 PACKET TP ONE (11:43)
[2019-02-17 11:53] VITALS: BP 133/58
== END 2019-02-17 11:53 | disposition home or self-care (01) ==
LOC: CED 10:57
DX: S61.452A Open bite of left hand, initial encounter (principal); W55.01XA Bitten by cat, initial encounter; I10 Essential (primary) hypertension; E78.5 Hyperlipidemia, unspecified; Z87.891 Personal history of nicotine dependence
CPT/HCPCS: 99283-ER